=== PATIENT | female | born 1975 | race Caucasian/White ===

== ENCOUNTER 2017-02-22 13:03 | Emergency (ER) | payer OTHER ==
[~2017-02-22] VITALS: Ht 170.2 cm; Wt 95.0 kg
[~2017-02-22 13:03] MED LIST: AMOXICILLIN500 MG PO; ATIVAN0.5 MG PO; ATIVAN1 MG PO; CEPHALEXIN500 MG PO; LISINOPRIL10 MG PO; MECLIZINE25 MG PO; METOPROL TAR100 MG PO; METOPROLOL TART50 MG PO; NO; PAXIL30 MG PO; PROTONIX40 M2 PO; TRAMADOL HCL50 MG PO; ZOFRAN4 MG/TAB PO
[2017-02-22 14:00] LABS: HEMATOCRIT 44.5 % (37.0-47.0); HEMOGLOBIN 15.3 g/dl (12.0-16.0); IMMATURE GRANULOCYTES 0.2 % (0.0-1.0); MEAN CELL VOLUME 94.1 fL CALC (80.0-100.0); MEAN CORPUSCULAR HGB 32.3 pG CALC (26.0-32.0); MEAN CORPUSCULAR HGB CONC 34.4 g/L CALC (32.0-36.0); NEUT# 5.52 thou/uL (2.00-7.15); RED BLOOD COUNT 4.73 mill/uL (4.20-5.60); RED CELL DISTRI WIDTH 11.6 % (11.5-15.5)
[2017-02-22 14:18] LABS: ALBUMIN 4.3 g/dL (3.2-5.0); ALKALINE PHOSPHATASE 82 u/l (38-126); ANION GAP 14 (6-22 (CALC)); BILIRUBIN, TOTAL 0.7 mg/dL (0.0-1.4); BUN 10 mg/dL (7-17); BUN/CREATININE RATIO 14 (12-20 (CALC)); CALCIUM 9.2 mg/dL (8.4-10.2); CARBON DIOXIDE 26 mmol/l (22-30); CHLORIDE 104 mmol/l (95-108); CREATININE 0.7 mg/dL (0.5-1.0); GFR > 60 ML/MIN (>=60 (CALC)); GFR FOR AFR.AMER. > 60 ML/MIN (>=60 (CALC)); GLUCOSE 95 mg/dL (65-105); SGOT/AST 18 u/l (14-36); SGPT/ALT 31 u/l (9-52); SODIUM 140 mmol/l (137-146); TOTAL PROTEIN 7.8 g/dL (6.3-8.2)
[2017-02-22] MEDS ORDERED: NAPROSYN500 MG PO (14:27)
[2017-02-22 14:46] VITALS: BP 152/95
== END 2017-02-22 14:51 | disposition home or self-care (01) | DRG 159 ==
LOC: ED 13:03
PROVIDERS: Emergency Medicine
DX: M26.603 Bilateral temporomandibular joint disorder, unspecified (principal)

== ENCOUNTER 2017-02-25 17:26 | Emergency (ER) | payer OTHER ==
[~2017-02-25] VITALS: Ht 170.2 cm; Wt 95.0 kg
[~2017-02-25 17:26] MED LIST changes: +NAPROSYN500 MG PO
[2017-02-25] MEDS ORDERED: ASPIRIN81 MG PO (17:41)
[2017-02-25 18:13] VITALS: BP 158/95
== END 2017-02-25 18:15 | disposition home or self-care (01) | DRG 948 ==
LOC: ED 17:26
DX: R53.1 Weakness (principal)

== ENCOUNTER 2017-05-10 19:17 | Emergency (ER) | payer OTHER ==
[~2017-05-10] VITALS: Ht 170.2 cm; Wt 92.2 kg
[~2017-05-10 19:17] MED LIST changes: +ASPIRIN81 MG PO
[2017-05-10 20:24] LABS: HEMATOCRIT 40.9 % (37.0-47.0); HEMOGLOBIN 14.4 g/dl (12.0-16.0); IMMATURE GRANULOCYTES 0.2 % (0.0-1.0); MEAN CELL VOLUME 93.2 fL CALC (80.0-100.0); MEAN CORPUSCULAR HGB 32.8 pG CALC (26.0-32.0); MEAN CORPUSCULAR HGB CONC 35.2 g/L CALC (32.0-36.0); NEUT# 7.13 thou/uL (2.00-7.15); RED BLOOD COUNT 4.39 mill/uL (4.20-5.60); RED CELL DISTRI WIDTH 11.8 % (11.5-15.5)
[2017-05-10 20:31] LABS: ALKALINE PHOSPHATASE 76 u/l (38-126); ANION GAP 14 (6-22 (CALC)); BILIRUBIN, TOTAL 0.3 mg/dL (0.0-1.4); BUN 11 mg/dL (7-17); BUN/CREATININE RATIO 14 (12-20 (CALC)); CALCIUM 8.9 mg/dL (8.4-10.2); CARBON DIOXIDE 23 mmol/l (22-30); CHLORIDE 108 mmol/l (95-108); CREATININE 0.8 mg/dL (0.5-1.0); GFR > 60 ML/MIN (>=60 (CALC)); GFR FOR AFR.AMER. > 60 ML/MIN (>=60 (CALC)); GLUCOSE 99 mg/dL (65-105); POTASSIUM 4.1 mmol/l (3.5-5.1); SGOT/AST 20 u/l (14-36); SGPT/ALT 37 u/l (9-52); SODIUM 141 mmol/l (137-146); TOTAL PROTEIN 6.7 g/dL (6.3-8.2)
[2017-05-10 21:19] VITALS: BP 151/82
== END 2017-05-10 21:20 | disposition home or self-care (01) | DRG 310 ==
LOC: ED 19:17
PROVIDERS: Emergency Medicine
DX: R00.2 Palpitations (principal); F41.9 Anxiety disorder, unspecified

== ENCOUNTER 2017-07-02 15:48 | Emergency (ER) | payer SELFPAY ==
[~2017-07-02] VITALS: Ht 170.2 cm; Wt 96.0 kg
[2017-07-02] MEDS ORDERED: LOPRESSOR 550 MG/TAB PO (16:47)
[2017-07-02] MEDS ORDERED: ZPAK PO (16:50)
[2017-07-02] MEDS ORDERED: MUCINEX600 MG PO (18:05)
[2017-07-02] MEDS ORDERED: AMOXICILLIN500 MG PO (18:05)
[2017-07-02 18:15] VITALS: BP 139/74
== END 2017-07-02 18:15 | disposition home or self-care (01) | DRG 153 ==
LOC: ED 15:48
DX: H66.91 Otitis media, unspecified, right ear (principal); R09.81 Nasal congestion; J40 Bronchitis, not specified as acute or chronic; R05 Cough

== ENCOUNTER 2018-08-08 17:41 | Emergency (ER) | payer OTHER ==
[~2018-08-08] VITALS: Ht 170.2 cm; Wt 103.0 kg
[~2018-08-08 17:41] MED LIST changes: +LOPRESSOR 550 MG/TAB PO; +MUCINEX600 MG PO; +ZPAK PO
[2018-08-08 18:50] LABS: INFLUENZA A NONE DETECTED (NONE DETECT); INFLUENZA B NONE DETECTED (NONE DETECT)
[2018-08-08] MEDS ORDERED: LORTAB 1010 MG PO (19:06)
[2018-08-08] MEDS ORDERED: BACTRIM DS1 TAB PO (19:06)
[2018-08-08] MEDS ORDERED: CEPHALEXIN500 MG PO (19:06)
[2018-08-08 19:14] VITALS: BP 154/90
== END 2018-08-08 19:21 | disposition home or self-care (01) ==
LOC: ED 17:41
PROVIDERS: Emergency Medicine
DX: L02.31 Cutaneous abscess of buttock (principal); R50.9 Fever, unspecified

== ENCOUNTER 2018-08-09 17:00 | Emergency (ER) | payer OTHER ==
[~2018-08-09] VITALS: Ht 170.2 cm; Wt 130.1 kg
[~2018-08-09 17:00] MED LIST changes: +BACTRIM DS1 TAB PO; +LORTAB 1010 MG PO
[2018-08-09 17:30] VITALS: BP 149/85
== END 2018-08-09 17:35 | disposition home or self-care (01) ==
LOC: ED 17:00
DX: Z48.01 Encounter for change or removal of surgical wound dressing (principal)

== ENCOUNTER 2018-08-11 11:42 | Emergency (ER) | payer OTHER ==
[~2018-08-11] VITALS: Ht 170.2 cm; Wt 103.0 kg
[2018-08-11 13:03] VITALS: BP 136/68
== END 2018-08-11 13:03 | disposition home or self-care (01) ==
LOC: ED 11:42
DX: Z48.01 Encounter for change or removal of surgical wound dressing (principal); I10 Essential (primary) hypertension; F41.9 Anxiety disorder, unspecified

== ENCOUNTER 2018-08-14 10:34 | Emergency (ER) | payer OTHER ==
[~2018-08-14] VITALS: Ht 170.2 cm; Wt 103.2 kg
[2018-08-14 11:00] VITALS: BP 145/86
== END 2018-08-14 11:00 | disposition home or self-care (01) ==
LOC: ED 10:34
DX: Z48.01 Encounter for change or removal of surgical wound dressing (principal)

== ENCOUNTER 2018-08-17 10:20 | Emergency (ER) | payer OTHER ==
[~2018-08-17] VITALS: Ht 170.2 cm; Wt 106.0 kg
[2018-08-17 11:33] VITALS: BP 135/77
== END 2018-08-17 11:30 | disposition home or self-care (01) ==
LOC: ED 10:20
DX: Z48.00 Encounter for change or removal of nonsurgical wound dressing (principal)

== ENCOUNTER 2018-08-20 10:05 | Emergency (ER) | payer OTHER ==
[~2018-08-20] VITALS: Ht 170.2 cm; Wt 107.0 kg
[2018-08-20 10:35] VITALS: BP 147/90
== END 2018-08-20 10:37 | disposition home or self-care (01) ==
LOC: ED 10:05
DX: Z48.00 Encounter for change or removal of nonsurgical wound dressing (principal)

== ENCOUNTER 2018-08-23 10:13 | Emergency (ER) | payer OTHER ==
[~2018-08-23] VITALS: Ht 170.2 cm; Wt 107.7 kg
[2018-08-23 10:49] VITALS: BP 147/88
== END 2018-08-23 10:56 | disposition home or self-care (01) ==
LOC: ED 10:13
DX: Z48.00 Encounter for change or removal of nonsurgical wound dressing (principal)

== ENCOUNTER 2018-09-06 08:49 | Emergency (ER) | payer SELFPAY ==
[~2018-09-06] VITALS: Ht 170.2 cm; Wt 105.9 kg
[2018-09-06 10:20] LABS: INFLUENZA A NONE DETECTED (NONE DETECT); INFLUENZA B NONE DETECTED (NONE DETECT)
[2018-09-06] MEDS ORDERED: ROBITUSSIN200 MG/10 PO (10:33)
[2018-09-06] MEDS ORDERED: CEPHALEXIN500 M1 PO (10:33)
[2018-09-06 10:50] VITALS: BP 167/83
== END 2018-09-06 11:04 | disposition home or self-care (01) | DRG 153 ==
LOC: ED 08:49
PROVIDERS: Emergency Medicine
DX: J06.9 Acute upper respiratory infection, unspecified (principal); R05 Cough

== ENCOUNTER 2019-03-28 16:37 | Emergency (ER) | payer SELFPAY ==
[~2019-03-28] VITALS: Ht 170.2 cm; Wt 90.0 kg
[~2019-03-28 16:37] MED LIST changes: +CEPHALEXIN500 M1 PO; +ROBITUSSIN200 MG/10 PO
[2019-03-28] MEDS ORDERED: PENICILLN VK500 MG PO (16:59)
[2019-03-28 17:03] VITALS: BP 164/88
== END 2019-03-28 17:20 | disposition home or self-care (01) | DRG 159 ==
LOC: ED 16:37
DX: K04.7 Periapical abscess without sinus (principal); I10 Essential (primary) hypertension

== ENCOUNTER 2019-10-24 14:32 | Emergency (ER) | payer SELFPAY ==
[~2019-10-24] VITALS: Ht 170.2 cm; Wt 109.1 kg
[~2019-10-24 14:32] MED LIST changes: +PENICILLN VK500 MG PO
[2019-10-24] MEDS ORDERED: MONTELUKAST SOD10 MG PO (14:55)
[2019-10-24] MEDS ORDERED: CETIRIZINE10 MG PO (14:55)
[2019-10-24] MEDS ORDERED: ZPAK PO (15:37)
[2019-10-24 15:40] VITALS: BP 167/81
== END 2019-10-24 15:40 | disposition home or self-care (01) | DRG 153 ==
LOC: ED 14:32
DX: J06.9 Acute upper respiratory infection, unspecified (principal); I10 Essential (primary) hypertension

== ENCOUNTER 2020-07-11 17:28 | Emergency (ER) | payer SELFPAY ==
[~2020-07-11] VITALS: Ht 170.2 cm; Wt 108.0 kg
[~2020-07-11 17:28] MED LIST changes: +CETIRIZINE10 MG PO; +MONTELUKAST SOD10 MG PO
[2020-07-11] MEDS ORDERED: ZOFRAN4 M1 PO (18:32)
[2020-07-11 18:50] VITALS: BP 149/72
== END 2020-07-11 18:50 | disposition home or self-care (01) | DRG 880 ==
LOC: ED 17:28
DX: F41.9 Anxiety disorder, unspecified (principal); I10 Essential (primary) hypertension